=== PATIENT | male | born 1985 | race Hispanic/Latino ===

== ENCOUNTER → 2023-10-27 03:38 | Outpatient (REF) | payer BC, SELFPAY ==
[2023-10-27 05:23] LABS: ALT (SGPT) 134 U/L (0-50); AST (SGOT) 74 U/L (17-59); Albumin 4.9 g/dl (3.5-5.0); Alkaline Phosphatase 70 U/L (38-126); Direct Bilirubin 0.4 mg/dl (0.0-0.4); Total Bilirubin 0.8 mg/dl (0.2-1.3); Total Protein 8.4 g/dl (6.3-8.2)
== END ==
LOC: REG 03:38
PROVIDERS: ATTENDING PHYSICIAN Nurse Practitioner Family
DX: K76.0 Fatty (change of) liver, not elsewhere classified (principal)
CPT/HCPCS: 80076

== ENCOUNTER → 2023-10-27 03:59 | Outpatient (REF) | payer BC, SELFPAY | LOC: RAD 03:59 | PROVIDERS: ATTENDING PHYSICIAN Nurse Practitioner Family | DX: K76.0 Fatty (change of) liver, not elsewhere classified (principal) | CPT/HCPCS: 76700 ==

== ENCOUNTER → 2023-12-13 07:24 | Outpatient (REF) | payer BC, SELFPAY ==
[2023-12-13 10:26] LABS: ALT (SGPT) 105 U/L (0-50); AST (SGOT) 61 U/L (17-59); Albumin 4.7 g/dl (3.5-5.0); Alkaline Phosphatase 75 U/L (38-126); Direct Bilirubin 0.1 mg/dl (0.0-0.4); Iron 109 ug/dl (49-181); Total Bilirubin 0.7 mg/dl (0.2-1.3); Total Protein 7.6 g/dl (6.3-8.2)
[2023-12-13 10:35] LABS: Percent Saturation 25 % (20-50); Total Iron Binding Capacity 422 ug/dl (261-462)
[2023-12-15 00:06] LABS: EBV-EA (D) Ab IgG <5.0 U/mL (0.0-10.9); EBV-NA IgG >600.0 U/mL (0.0-21.9); EBV-VCA IgG Antibodies >750.0 U/mL (0.0-21.9); EBV-VCA IgM Antibodies <10.0 U/mL (0.0-43.9)
[2023-12-15 01:00] LABS: ANA, IgG Reflex to HEp-2 None Detected (None Detected)
[2023-12-15 02:51] LABS: Mitochondrial M2 Ab, IgG 11.8 Units (0.0-24.9)
[2023-12-15 03:56] LABS: Alpha-1-Antitrypsin 132 mg/dL (90-200)
[2023-12-15 04:49] LABS: Ceruloplasmin 22 mg/dL (15-30)
[2023-12-15 08:44] LABS: F-Actin Antibody IgG 6 Units (0-19)
[2023-12-15 18:25] LABS: LKM-1 Ab (IgG) 1.2 U (0.0-24.9)
== END ==
LOC: REG 07:24
PROVIDERS: ATTENDING PHYSICIAN Nurse Practitioner Family
DX: R79.89 Other specified abnormal findings of blood chemistry (principal)
CPT/HCPCS: 36415; 80076; 82103; 82390; 82728; 83540; 83550; 86015; 86038; 86376; 86381; 86663; 86664; 86665

== ENCOUNTER → 2024-01-24 17:10 | Outpatient (REF) | payer BC, SELFPAY | LOC: MRI 3T 17:10 | PROVIDERS: ATTENDING PHYSICIAN Specialist | DX: R10.84 Generalized abdominal pain (principal); R79.89 Other specified abnormal findings of blood chemistry | CPT/HCPCS: 74183; A9575 ==

== ENCOUNTER → 2024-02-19 07:20 | Outpatient (REF) | payer BC, SELFPAY ==
[2024-02-19 08:33] LABS: ALT (SGPT) 81 U/L (0-50); AST (SGOT) 50 U/L (17-59); Albumin 4.6 g/dl (3.5-5.0); Alkaline Phosphatase 61 U/L (38-126); Direct Bilirubin 0.2 mg/dl (0.0-0.4); Total Bilirubin 0.9 mg/dl (0.2-1.3); Total Protein 7.6 g/dl (6.3-8.2)
== END ==
LOC: REG 07:20
PROVIDERS: ATTENDING PHYSICIAN Specialist
DX: R74.8 Abnormal levels of other serum enzymes (principal)
CPT/HCPCS: 36415; 80076

== ENCOUNTER → 2024-11-21 05:14 | Outpatient (REF) | payer BC, SELFPAY ==
[2024-11-21 08:10] LABS: Hematocrit 40.9 % (39.0-52.0); Hemoglobin 14.3 g/dL (13.0-18.0); Mean Corp Hgb Conc. 35.0 g/dL (33.0-37.0); Mean Corpuscular Volume 84.9 fL (80.0-94.0); Nucleated Red Blood Cells % 0 % (-); Platelet Count 227 10^3/uL (130-400); Red Cell Dist. Width 13.2 % (11.5-14.5)
[2024-11-21 08:39] LABS: ALT (SGPT) 69 U/L (0-50); AST (SGOT) 39 U/L (17-59); Albumin 4.7 g/dl (3.5-5.0); Alkaline Phosphatase 70 U/L (38-126); Total Protein 7.8 g/dl (6.3-8.2)
[2024-11-21 09:08] LABS: Glycohemoglobin (HgbA1c) 5.3 % (4.0-5.6)
== END ==
LOC: REG 05:14
PROVIDERS: ATTENDING PHYSICIAN Specialist
DX: K76.0 Fatty (change of) liver, not elsewhere classified (principal)
CPT/HCPCS: 36415; 80076; 83036; 85025